=== PATIENT | female | born 1960 | race African-American/Black ===

== ENCOUNTER → 2016-09-13 | Emergency (ER) | payer OTHER ==
[~2016-09-13] MED LIST: MECLIZINE HCL 25 MG TABLET (FP) ONE; MECLIZINE HCL 25 MG TABLET (FP) PO ONE; SODIUM CHLORIDE 0.9% 1000 ML INFUS.BAG IV ONE
[2016-09-13 17:46] VITALS: BMI 35.7
--- NOTE | 2016-09-13 20:19 | PDOC ---
History of Present Illness - General Chief Complaint: Lightheaded Stated Complaint: DIZZINESS Time Seen by Provider: 09/13/16 19:10 - History of Present Illness Initial Comments: 09/13/16 21:18 CHIEF COMPLAINT: dizziness HISTORY OF PRESENT ILLNESS: 56 yo F with no PMH presents to ED with dizziness x 2 days. Patient reports she woke up yesterday and when she got up, she felt the "room was spinning." She reports that she "feels a little bit of nausea when the room is spinning, but otherwise no nausea." She denies any vomiting or diarrhea. She reports feeling a "dull ache" and that she has had a "dull sensation like something is in my ear" intermittently for hte past month. She saw her PCP for this yesterday and was told it was vertigo. No recent travel or sick contacts. PAST MEDICAL HISTORY: Denies past medical history FAMILY HISTORY: Denies SOCIAL HISTORY: Daily smoker, 3 cigarettes daily. Denies alcohol, illicit drug use. SURGICAL HISTORY: Denies ALLERGIES: No known drug allergies REVIEW OF SYSTEMS General/Constitutional: Denies fever or chills. Denies weakness, weight change. HEENT: Denies change in vision. Denies ear pain or discharge. Denies sore throat. Cardiovascular: Denies chest pain or shortness of breath. Respiratory: Denies cough, wheezing, or hemoptysis. Gastrointestinal: Denies nausea, vomiting, diarrhea or constipation. Denies rectal bleeding. Genitourinary: Denies dysuria, frequency, or change in urination. Musculoskeletal: Denies joint or muscle swelling or pain. Denies neck or back pain. Skin and breasts: Denies rash or easy bruising. Neurologic: Vertigo, "dull headache" x 2 days. Denies loss of consciousness, or loss of sensation. PHYSICAL EXAM General Appearance: Well-appearing, appropriately dressed. No apparent distress , no intoxication. HEENT: EOMI, PERRLA, normal ENT inspection, normal voice, TMs normal, pharynx normal. No conjunctival pallor. No photophobia, scleral icterus. Neck: Supple. Trachea midline. No tenderness, rigidity, carotid bruit, stridor , lymphadenopathy, or thyromegaly. Respiratory/Chest: Lungs CTAB. Cardiovascular: RRR. S1, S2. No JVD, murmur, bradycardia, tachycardia. Gastrointestinal/Abdominal: Normal bowel sounds. Abdomen soft, non-distended. No tenderness or rebound tenderness. No organomegaly, pulsatile mass, guarding , hernia, hepatomegaly, splenomegaly. Lymphatic: No adenopathy, tenderness. Musculoskeletal/Extremities: Normal inspection. FROM of all extremities, normal capillary refill. Pelvis Stable. No CVA tenderness. No tenderness to extremities, pedal edema, swelling, erythema or deformity. Integumentary: Appropriate color, dry, warm. 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 Fully oriented, alert. Appropriate mood/affect. Motor strength 5/5. No appreciable EOM palsy, facial droop or sensory deficit. A&Ox3, follow commands, respond appropriately CN2-12: conjugate gaze, pupil round, equal and reactive to light. Visual field full to confrontation. EOMI without nystagmus, pursuit is smooth without saccade. Facial sensation and muscle activation intact bilaterally. Hearing intact bilaterally. Palate elevate symmetrically. Shoulder shrug and neck turn full strength. Tongue protrude midline. Motor: UE and LE strength 5/5 throughout bilaterally. Muscle tone and bulk normal. Sensory: pin prick & temp : BUE & BLE intact and equal bilaterally Vibration & propioception: intact bilaterally at 1st MCP and MTP joints. no sensory level noted on trunk Cerebellar: Rapid-alternating movement with regular rhythm without bradykinesia. [id number]-[id number] and [id number]-[id number] intact bilaterally without dysmetria or overshoot. Gait narrow based. No shuffling. Full hip flexion and knee flexion. Negative Romberg No involuntary movement noted. No pronator drift. No clonus. Past History - Past Medical History Allergies/Adverse Reactions: Allergies Allergy/AdvReac Type Severity Reaction Status Date / Time No Known Allergies Allergy Verified 09/13/16 17:46 Home Medications: Ambulatory Orders Meclizine HCl 25 mg PO TID PRN #12 tablet 09/13/16 Suicide Attempt (Hx): No Other medical history: SCIATICA - Family Disease History Family Disease History: Heart Disease: Mother ([place]), Sister ([place]) - Immunization History Immunization Up to Date: Yes - Psycho/Social/Smoking Cessation Hx Anxiety: No Suicidal Ideation: No Smoking Status: Yes Smoking History: Current every day smoker Have you smoked in the past 12 months: Yes Number of Cigarettes Smoked Daily: 3 Information on smoking cessation initiated: Yes 'Breaking Loose' booklet given: 09/13/16 Hx Alcohol Use: No Drug/Substance Use Hx: No Substance Use Type: None Hx Substance Use Treatment: No *Physical Exam - Vital Signs Last Vital Signs Temp Pulse Resp BP Pulse Ox 98.2 F 94 H 20 143/93 98 09/13/16 17:43 09/13/16 17:43 09/13/16 17:43 09/13/16 17:43 09/13/16 17:43 ED Treatment Course - LABORATORY CBC & Chemistry Diagram: 09/13/16 20:15 09/13/16 20:15 Medical Decision Making - Medical Decision Making 09/13/16 20:22 56 yo F with no PMH presents to ED with dizziness x 2 days. -IVF -meclizine Will reassess. 09/13/16 21:20 Patient reassessed; at this time she states she is feeling much better and denies any dizziness with positional changes. Patient able to walk without feeling dizzy. Will discharge to home with rx for meclizine and referral to neuro. Advised patient to take medication as prescribed and follow up with neuro if symptoms persist. Advised patient of signs and symptoms for return to ED. Patient verbalized understanding and agrees to plan. *DC/Admit/Observation/Transfer Diagnosis at time of Disposition: Benign positional vertigo Qualifiers: Laterality: unspecified laterality Qualified Code(s): H81.10 - Benign paroxysmal vertigo, unspecified ear - Discharge Dispostion Disposition: HOME Condition at time of disposition: Stable Admit: No - Prescriptions Prescriptions: Meclizine HCl 25 mg PO TID PRN #12 tablet PRN Reason: Vertigo - Referrals Referrals: Edgardo Pinto MD [Staff Physician] - - Patient Instructions Printed Discharge Instructions: DI for Benign Paroxysmal Positional Vertigo Additional Instructions: Please take medication as prescribed. As discussed, if symptoms persist past 2- 3 days, please follow up with neurology. (Referral provided). If you experience any sudden, sharp "thunderclap" headache, change in vision, difficulty speaking, swallowing, or walking, or your friends or family notice a change in your behavior or mental status, or you develop any new or worsening symptoms, please return to the ER immediately . - Post Discharge Activity Work/School Note: Back to Work
[2016-09-13 20:28] LABS: EOSINOPHIL 1.3 % (0-4.5); MCH 29.3 pg (25.7-33.7); MCHC 32.6 g/dl (32.0-36.0); MEAN CELL VOLUME 89.9 fl (80-96); MEAN PLT VOLUME 7.3 fl (7.5-11.1); NEUTROPHILS 38.8 % (42.8-82.8); PLATELET COUNT 311 K/MM3 (134-434); RDW 13.9 % (11.6-15.6); WHITE BLOOD COUNT 6.6 K/mm3 (4.0-10.0)
[2016-09-13 20:56] LABS: ALBUMIN 3.8 g/dl (3.4-5.0); ANION GAP 7 (8-16); BILIRUBIN,TOTAL 0.3 mg/dL (0.2-1.0); CALCIUM 9.1 mg/dL (8.5-10.1); CO2 30 mmol/L (21-32); CREATININE 0.9 mg/dL (0.55-1.02); GLUCOSE,RANDOM 115 mg/dL (74-106); SGOT/AST 13 U/L (15-37); SGPT/ALT 28 U/L (12-78)
[2016-09-13 20:57] LABS: ALK PHOS 62 U/L (45-117)
[2016-09-13 21:43] VITALS: BP 141/89; PULSE 77; TEMP 98
--- NOTE | 2016-09-19 14:42 | EKG ---
Test Reason : Blood Pressure : / mmHG Vent. Rate : 074 BPM Atrial Rate : 074 BPM P-R Int : 180 ms QRS Dur : 084 ms QT Int : 388 ms P-R-T Axes : 042 013 018 degrees QTc Int : 430 ms NORMAL SINUS RHYTHM CANNOT RULE OUT ANTERIOR INFARCT (CITED ON OR BEFORE 14-MAY-2015) ABNORMAL ECG WHEN COMPARED WITH ECG OF 14-MAY-2015 21:54, NO SIGNIFICANT CHANGE WAS FOUND Confirmed by RAY JAY MD ([id number]) on 09/19/2016 2:41:33 PM Referred By: Confirmed By:RAY JAY MD
== END | disposition home or self-care (01) ==
LOC: JER 17:39
DX: H81.10 Benign paroxysmal vertigo, unspecified ear (principal); F17.210 Nicotine dependence, cigarettes, uncomplicated
CPT/HCPCS: 36415; 80053; 84703; 85025; 93005; 93010; 99282-25

== ENCOUNTER 2020-10-29 20:03 | Emergency (ER) | payer OTHER ==
[2020-10-29 20:09] VITALS: BP 143/84; PULSE 88; TEMP 97; BMI 38.9
[2020-10-29] MEDS ORDERED: SODIUM CHLORIDE 0.9% 500 ML INFUS.BAG IV ONE (21:36)
[2020-10-29] MEDS ORDERED: ACETAMINOPHEN 1000 MG/100 ML VIAL (NON FORMULARY) IVPB ONE (21:36)
[2020-10-29] MEDS ORDERED: METOCLOPRAMIDE HCL INJECTION 10 MG/2 ML VIAL IVPUSH ONE (21:36)
[2020-10-29] MEDS ORDERED: METOCLOPRAMIDE HCL INJECTION 10 MG/2 ML VIAL ONE (22:19)
[2020-10-29] MEDS ORDERED: ACETAMINOPHEN INJECTION 100 ML IVPB ONE (22:19)
[2020-10-29 22:46] LABS: BASO % 1.4 % (0-2.0); EOS % 1.9 % (0-4.5); HEMATOCRIT 37.8 % (32.4-45.2); HEMOGLOBIN 12.8 GM/dL (10.7-15.3); LYMPH % 52.2 % (8-40); MCHC 33.9 g/dl (32.0-36.0); MEAN CELL VOLUME 88.6 fl (80-96); MEAN PLT VOLUME 7.1 fl (7.5-11.1); MONO % 5.5 % (3.8-10.2); PLATELET COUNT 359 10^3/uL (134-434); RBC 4.26 M/mm3 (3.60-5.2); RDW 14.1 % (11.6-15.6); WHITE BLOOD COUNT 8.6 K/mm3 (4.0-10.0)
[2020-10-29 23:09] LABS: CHLORIDE 106 mmol/L (98-107); SODIUM 143 mmol/L (136-145)
[2020-10-29 23:11] LABS: CALCIUM 8.9 mg/dL (8.5-10.1)
[2020-10-29 23:12] LABS: ALBUMIN 3.9 g/dl (3.4-5.0); ANION GAP 8 MMOL/L (8-16); BLOOD UREA NITROGEN 16.6 mg/dL (7-18); CO2 30 mmol/L (21-32); GLUCOSE,RANDOM 109 mg/dL (74-106)
[2020-10-29 23:15] LABS: SGOT/AST 22 U/L (15-37); SGPT/ALT 30 U/L (13-61)
[2020-10-29 23:16] LABS: BILIRUBIN,TOTAL 0.3 mg/dL (0.2-1); TOT PROT 7.4 g/dl (6.4-8.2)
[2020-10-29 23:17] LABS: ALK PHOS 73 U/L (45-117)
== END 2020-10-29 23:59 | disposition home or self-care (01) ==
LOC: JER 20:03
PROC: 3E0333Z Introduction of Anti-inflammatory into Peripheral Vein, Percutaneous Approach (ICD-10-PCS; principal; 2020-10-29)
PROC: 3E033GC Introduction of Other Therapeutic Substance into Peripheral Vein, Percutaneous Approach (ICD-10-PCS; 2020-10-29)
DX: R51.9 Headache, unspecified (principal)
CPT/HCPCS: 36415; 70450-TC; 71046-TC-FY; 80053; 82550; 82553; 84484; 85025; 93005; 93010; 96374; 96375; 99285-25; J0131

== ENCOUNTER 2023-09-19 09:48 | Inpatient (IN) | payer OTHER ==
[2023-09-19 09:57] VITALS: TEMP 97.9; BMI 37.9
[2023-09-19] MEDS ORDERED: ACETAMINOPHEN INJECTION 100 ML IVPB ONE (11:19)
[2023-09-19] MEDS ORDERED: ONDANSETRON 4 MG/2 ML VIAL ONE (11:19)
[2023-09-19] MEDS ORDERED: LABETALOL HCL 5 MG/1 ML (100MG/20 ML VIAL) ONE (11:19)
[2023-09-19] MEDS: ACETAMINOPHEN 1000 MG/100 ML BAG IVPB ONE (11:27)
[2023-09-19] MEDS: LABETALOL HCL 5 MG/1 ML (100MG/20 ML VIAL) IVPUSH ONE ×2 (11:27→12:29)
[2023-09-19] MEDS: ONDANSETRON 4 MG/2 ML VIAL IVPUSH ONE (11:27)
[2023-09-19 11:46] LABS: INR 0.97 (0.83-1.09)
[2023-09-19 11:48] LABS: ACTIVATED PTT 37.1 SECONDS (25.2-36.5)
[2023-09-19 11:51] LABS: EOS % 1.5 % (0-4.5); HEMATOCRIT 39.8 % (32.4-45.2); HEMOGLOBIN 13.1 GM/dL (10.7-15.3); LYMPH % 47.1 % (8-40); MCH 29.9 pg (25.7-33.7); MEAN CELL VOLUME 90.9 fl (80-96); MEAN PLT VOLUME 7.5 fl (7.5-11.1); MONO % 7.3 % (3.8-10.2); NEUT % 43.1 % (42.8-82.8); PLATELET COUNT 357 10^3/uL (134-434); RBC 4.38 M/mm3 (3.60-5.2); RDW 14.4 % (11.6-15.6)
[2023-09-19 11:58] LABS: POTASSIUM 4.1 mmol/L (3.5-5.1)
[2023-09-19 12:01] LABS: ALBUMIN 4.2 g/dl (3.4-5.0); BLOOD UREA NITROGEN 17.1 mg/dL (7-18); CALCIUM 9.5 mg/dL (8.5-10.1)
[2023-09-19 12:06] LABS: BILIRUBIN,TOTAL 0.4 mg/dL (0.2-1); TOT PROT 7.4 g/dl (6.4-8.2)
[2023-09-19] MEDS ORDERED: LABETALOL HCL 20 MG/4 ML VIAL ONE (12:20)
[2023-09-19] MEDS ORDERED: MAG HYDROX/AL HYDROX/SIMETH 30 ML UNIT-DOSE CUP ONE (14:00)
[2023-09-19] MEDS ORDERED: FAMOTIDINE 20 MG/50 ML IVPB 20 MG/50 ML MG IVPB ONE (14:00)
[2023-09-19] MEDS: FAMOTIDINE 20 MG/50 ML IVPB 20 MG/50 ML MG IVPB ONE (14:05)
[2023-09-19] MEDS: MAG HYDROX/AL HYDROX/SIMETH 30 ML UNIT-DOSE CUP PO ONE (14:05)
[2023-09-19] MEDS: ASPIRIN 81 MG CHEWABLE TABLETS PO ONE (14:46)
[2023-09-19] MEDS: NITROGLYCERIN 25MG/D5W 250ML 25 MG/250 ML ML IVPB SCH (14:46)
[2023-09-19] MEDS ORDERED: ASPIRIN 325 MG TABLET ONE (14:47)
[2023-09-19] MEDS: HEPARIN NA (PORCINE) 5,000 UNITS/ML 1ML VIAL IVPUSH ONE (14:53)
[2023-09-19] MEDS: CLOPIDOGREL BISULFATE 300 MG TABLET PO ONE (14:53)
[2023-09-19] MEDS ORDERED: CLOPIDOGREL BISULFATE 300 MG TABLET ONE (14:55)
[2023-09-19] MEDS ORDERED: HEPARIN NA (PORCINE) 5,000 UNITS/ML 1ML VIAL ONE (14:56)
[2023-09-19 16:39] VITALS: PULSE 73; RESP 19
[2023-09-19 17:42] VITALS: BP 165/85
[2023-09-19] MEDS ORDERED: MORPHINE SULFATE 2 MG/ML SYRINGE ONE (17:43)
[2023-09-19] MEDS: morphine CARPU-JECT 2 MG/1 ML DISP.SYRIN IVPUSH ONE (17:44)
== END 2023-09-19 18:37 | disposition short-term general hospital (02) | DRG 282 ==
LOC: JER 09:48 → JERBED 15:53
PROVIDERS: ADMIT Internal Medicine; ATTEND Internal Medicine
DX: I21.4 Non-ST elevation (NSTEMI) myocardial infarction (principal); I10 Essential (primary) hypertension; R00.0 Tachycardia, unspecified; R07.2 Precordial pain
CPT/HCPCS: 0241U-QW; 36415; 71045-TC-FY; 71275-TC; 74174-TC; 80053; 83880; 84443; 84484; 85025; 85610; 85730; 86850; 86900; 86901; 93005; 93010; 99285-25; J0131; J1644; Q9967

== ENCOUNTER 2023-10-08 10:28 | Emergency (ER) | payer OTHER ==
[2023-10-08 10:38] VITALS: BP 127/78; PULSE 89; RESP 18; TEMP 98.4; BMI 38.5
[2023-10-08] MEDS ORDERED: ASPIRIN 325 MG TABLET ONE (11:27)
[2023-10-08] MEDS: ASPIRIN 81 MG CHEWABLE TABLETS PO ONE (11:36)
[2023-10-08 11:50] LABS: BASO % 0.8 % (0-2.0); EOS % 2.3 % (0-4.5); HEMATOCRIT 38.2 % (32.4-45.2); HEMOGLOBIN 12.7 GM/dL (10.7-15.3); LYMPH % 44.6 % (8-40); MCH 30.5 pg (25.7-33.7); MCHC 33.3 g/dl (32.0-36.0); MEAN CELL VOLUME 91.5 fl (80-96); MEAN PLT VOLUME 7.1 fl (7.5-11.1); MONO % 6.8 % (3.8-10.2); NEUT % 45.5 % (42.8-82.8); PLATELET COUNT 352 10^3/uL (134-434); RBC 4.18 M/mm3 (3.60-5.2); RDW 14.4 % (11.6-15.6); WHITE BLOOD COUNT 5.1 K/mm3 (4.0-10.0)
[2023-10-08 11:57] LABS: PROTHROMBIN TIME (PATIENT) 11.3 SEC (9.7-13.0)
[2023-10-08 12:00] LABS: ACTIVATED PTT 34.9 SECONDS (25.2-36.5)
[2023-10-08 12:36] LABS: POTASSIUM 4.4 mmol/L (3.5-5.1)
[2023-10-08 12:44] LABS: BLOOD UREA NITROGEN 14.2 mg/dL (7-18); CALCIUM 9.5 mg/dL (8.5-10.1)
[2023-10-08 12:48] LABS: BILIRUBIN,TOTAL 0.6 mg/dL (0.2-1); TOT PROT 7.3 g/dl (6.4-8.2)
[2023-10-08 12:52] LABS: CREATININE 0.9 mg/dL (0.55-1.3)
[2023-10-08] MEDS ORDERED: FAMOTIDINE 20 MG/50 ML IVPB 20 MG/50 ML MG IVPB ONE (13:46)
[2023-10-08] MEDS ORDERED: LIDOCAINE VISCOUS 2% ORAL/TOP 15 ML UNIT-DOSE CUP ONE (13:46)
[2023-10-08] MEDS ORDERED: MAG HYDROX/AL HYDROX/SIMETH 30 ML UNIT-DOSE CUP ONE (13:46)
[2023-10-08] MEDS: FAMOTIDINE 20 MG/50 ML IVPB 20 MG/50 ML MG IVPB ONE (13:52)
[2023-10-08] MEDS: LACTATED RINGERS SOLUTION 1000 ML INFUS.BAG IV ONE (13:52)
[2023-10-08] MEDS: MAG HYDROX/AL HYDROX/SIMETH 30 ML UNIT-DOSE CUP PO ONE (13:53)
[2023-10-08] MEDS: LIDOCAINE VISCOUS 2% ORAL/TOP 15 ML UNIT-DOSE CUP MM ONE (13:53)
== END 2023-10-08 15:13 | disposition home or self-care (01) ==
LOC: JER 10:28
PROC: 3E033GC Introduction of Other Therapeutic Substance into Peripheral Vein, Percutaneous Approach (ICD-10-PCS; principal; 2023-10-08)
DX: R07.2 Precordial pain (principal)
CPT/HCPCS: 36415; 71045-TC-FY; 80053; 82550; 82553; 83735; 84484; 85025; 85610; 85730; 93005; 93010; 96365; 99285-25